=== PATIENT | female | born 1945 | race Two or more races ===

== ENCOUNTER 2024-11-16 11:00 | Inpatient (IN) | payer OTHER ==
[~2024-11-16] VITALS: Ht 157.5 cm; Wt 54.9 kg
[2024-11-16] MEDS ORDERED: VASOTEC5 MG PO (12:21)
[2024-11-16] MEDS ORDERED: DORZOLAMIDE HCL10 ML OPHT (12:21)
[2024-11-16] MEDS ORDERED: SYSTANE COMPLE1.5 ML OP (12:21)
[2024-11-16] MEDS ORDERED: [UNRECOGNIZED DRUG - SUPPLY] OP (12:23)
[2024-11-16 12:24] VITALS: BP 175/75
[2024-11-27] MEDS ORDERED: LIDOCAINE HCL 1%/EPINEPHRINE 20ML VIAL IJ ONE (09:30)
[2024-11-27] MEDS ORDERED: METRONIDAZOLE/SODIUM CHLORIDE 500 MG/100 ML PIGGYBACK IV ONE (09:30)
[2024-11-27] MEDS ORDERED: BUPIVACAINE HCL 30 ML VIAL IJ ONE (09:30)
[2024-11-27] MEDS ORDERED: levoFLOXacin IN DEXTROSE 5 % 5 MG/ML PIGGYBAG IV ONE (09:30)
[2024-11-27] MEDS ORDERED: MORPHINE SULFATE 4 MG/ML VIAL IV ONE ×2 (10:25→10:55)
[2024-11-27] MEDS ORDERED: MORPHINE SULFATE 4 MG/ML CARTRIDGE IV PRN (11:15)
[2024-11-27] MEDS ORDERED: ONDANSETRON HCL 2 MG/ML VIAL IV PRN (11:15)
[2024-11-27] MEDS ORDERED: DEXTROSE 50 % IN WATER 0.5 G/ML DISP.SYRIN IV PRN (11:15)
[2024-11-27] MEDS ORDERED: OxyCODONE HCL 5 MG TABLET (ROXICODONE) PO PRN (11:15)
[2024-11-27] MEDS ORDERED: RINGERS SOLUTION,LACTATED 1,000 ML IV SCH (11:15)
[2024-11-27 11:39] LABS: HEMOGLOBIN 10.1 g/dL (12.0-15.00); MEAN CELL VOLUME 84.4 fL (80.00-100.00); MEAN CORPUSCULAR HEMOGLOBIN 28.3 pg (27.00-32.0); MEAN CORPUSCULAR HGB CONC 33.6 g/dl (32.0-36.0); PLATELET COUNT 158 K/uL (150-450); RED BLOOD COUNT 3.55 M/uL (4.00-6.00); RED CELL DISTRIBUTION WIDTH 13.4 % (11.5-14.5)
[2024-11-27] MEDS ORDERED: SIMETHICONE 125 MG CAPSULE PO SCH (13:00)
[2024-11-27] MEDS ORDERED: HYOSCYAMINE SULFATE 0.125 MG TAB.SUBL SL SCH (13:00)
[2024-11-27] MEDS ORDERED: ACETAMINOPHEN 500 MG GEL..CAP PO SCH (14:00)
[2024-11-27] MEDS ORDERED: ENALAPRILAT DIHYDRATE 1.25 MG/ML VIAL IV PRN (15:45)
[2024-11-27] MEDS ORDERED: CELECOXIB 200 MG CAPSULE PO ONE (15:52)
[2024-11-27] MEDS ORDERED: METOCLOPRAMIDE HCL 5 MG/ML VIAL ONE (15:52)
[2024-11-27] MEDS ORDERED: HYOSCYAMINE SULFATE 0.125 MG TAB.SUBL ONE (15:52)
[2024-11-27] MEDS ORDERED: SIMETHICONE 125 MG CAPSULE PO ONE (15:52)
[2024-11-27] MEDS ORDERED: GABAPENTIN 300 MG CAPSULE PO ONE (15:52)
[2024-11-27 16:25] VITALS: BP 149/71; O2SAT 98
[2024-11-27] MEDS ORDERED: GABAPENTIN 300 MG CAPSULE PO SCH (17:00)
[2024-11-27] MEDS ORDERED: POLYETHYLENE GLYCOL 3350 17 GM BLIST.PACK PO SCH (17:00)
[2024-11-27] MEDS ORDERED: METOCLOPRAMIDE HCL 5 MG/ML VIAL IV SCH (17:00)
[2024-11-27] MEDS ORDERED: CELECOXIB 200 MG CAPSULE PO SCH (17:00)
[2024-11-27] MEDS ORDERED: FAMOTIDINE/PF 20 MG/2 ML VIAL IV PUSH SCH (21:00)
[2024-11-28 03:24] VITALS: BP 132/53
[2024-11-28 07:14] LABS: HEMATOCRIT 34.8 % (36.0-45.00); HEMOGLOBIN 11.6 g/dL (12.0-15.00); MEAN CORPUSCULAR HEMOGLOBIN 27.9 pg (27.00-32.0); MEAN CORPUSCULAR HGB CONC 33.2 g/dl (32.0-36.0); PLATELET COUNT 160 K/uL (150-450); RED BLOOD COUNT 4.14 M/uL (4.00-6.00); RED CELL DISTRIBUTION WIDTH 13.5 % (11.5-14.5)
[2024-11-28 08:03] LABS: ALBUMIN 2.7 gm/dL (3.4-5.0); CALCIUM 8.8 mg/dL (8.5-10.1); CREATININE SERUM 0.9 mg/dL (0.55-1.02); GFR 60.71; MAGNESIUM 1.6 mg/dL (1.8-2.4); PHOSPHOROUS 3.9 mg/dL (2.5-4.9); POTASSIUM 4.29 mEq/L (3.5-5.1)
[2024-11-28 08:57] VITALS: BP 127/70
[2024-11-28] MEDS ORDERED: LACTOBACILLUS ACIDOPHILUS 1 CAP CAP PO SCH (09:00)
[2024-11-28] MEDS ORDERED: ENALAPRIL MALEATE 5 MG TABLET PO SCH (09:00)
[2024-11-28] MEDS ORDERED: LACTULOSE 20 G/30 ML BLIST.PACK PO SCH (09:00)
[2024-11-28 16:00] VITALS: BP 171/74; O2SAT 96
[2024-11-28] MEDS ORDERED: ENOXAPARIN SODIUM 40 MG/0.4 ML SYRINGE SUBCUTANEO SCH (17:00)
[2024-11-29] VITALS: BP 101/67; O2SAT 93
[2024-11-29 08:15] VITALS: BP 154/72; O2SAT 94
[2024-11-29] MEDS ORDERED: ENOXAPARIN SODIUM 40 MG/0.4 ML SYRINGE SUBCUTANEO SCH (09:00)
[2024-11-29 15:50] VITALS: BP 159/71; O2SAT 97
[2024-11-30 00:51] VITALS: BP 134/72; O2SAT 99
[2024-11-30 08:00] VITALS: BP 155/90; O2SAT 95
== END 2024-11-30 09:50 | disposition home or self-care (01) | DRG 331 ==
LOC: SURH 11-27 05:24 → O/R 11-27 05:24 → SURH 11-27 11:00
PROVIDERS: ADMIT Colon & Rectal Surgery; ATTEND Colon & Rectal Surgery
PROC: 0DBP4ZZ Excision of Rectum, Percutaneous Endoscopic Approach (ICD-10-PCS; 2024-11-27)
PROC: 07BC4ZX Excision of Pelvis Lymphatic, Percutaneous Endoscopic Approach, Diagnostic (ICD-10-PCS; 2024-11-27)
PROC: 0DTN4ZZ Resection of Sigmoid Colon, Percutaneous Endoscopic Approach (ICD-10-PCS; principal; 2024-11-27 14:30)
DX: C19 Malignant neoplasm of rectosigmoid junction (principal); D12.7 Benign neoplasm of rectosigmoid junction

== ENCOUNTER 2025-03-13 05:21 | Inpatient (IN) | payer OTHER ==
[~2025-03-13] VITALS: Ht 149.9 cm; Wt 54.4 kg
[~2025-03-13 05:21] MED LIST: DORZOLAMIDE HCL10 ML OPHT; SYSTANE COMPLE1.5 ML OP; VASOTEC5 MG PO; [UNRECOGNIZED DRUG - SUPPLY] OP
[2025-03-13] MEDS ORDERED: CIPROFLOXACIN IN 5 % DEXTROSE 400 MG/200 ML PIGGYBAG IV SCH (06:00)
[2025-03-13] MEDS ORDERED: HEPARIN SODIUM,PORCINE 5,000 UNITS/ML VIAL ONE (06:55)
[2025-03-13] MEDS ORDERED: BUPIVACAINE HCL/Mpf 0.5% 10ML VIAL ONE ×2 (06:56→15:02)
[2025-03-13] MEDS ORDERED: LIDOCAINE HCL 1%/EPINEPHRINE 20ML VIAL IJ ONE ×3 (06:56→15:02)
[2025-03-13] MEDS ORDERED: CIPROFLOXACIN IN 5 % DEXTROSE 400 MG/200 ML PIGGYBAG IV ONE (06:58)
[2025-03-13] MEDS ORDERED: BUPIVACAINE HCL/MPF 0.5% 30ML VIAL ONE (08:04)
[2025-03-13] MEDS ORDERED: MORPHINE SULFATE 2 MG/ML CARTRIDGE IV ONE (08:50)
[2025-03-13] MEDS ORDERED: ENALAPRILAT DIHYDRATE 1.25 MG/ML VIAL IV ONE ×2 (10:38→10:40)
[2025-03-13] MEDS ORDERED: hydrALAZINE HCL 20 MG VIAL ONE (14:18)
[2025-03-13] MEDS ORDERED: ONDANSETRON HCL 2 MG/ML VIAL IV PRN (14:30)
[2025-03-13] MEDS ORDERED: MORPHINE SULFATE 4 MG/ML CARTRIDGE IV PRN (14:30)
[2025-03-13] MEDS ORDERED: 0.9 % SODIUM CHLORIDE 1,000 ML IV SCH (14:30)
[2025-03-13 15:29] LABS: BASO % 0.5 % (0.1-1.2); EOS # 0.13 (0.04-0.54); EOS % 1.8 % (0.7-7.0); HEMATOCRIT 35.7 % (34.1-44.9); HEMOGLOBIN 11.3 g/dL (11.2-15.7); LYMPH % 44.9 % (19.3-53.1); MEAN CORPUSCULAR HEMOGLOBIN 26.4 pg (25.6-32.2); MONO % 8.2 % (4.7-12.5); NEUT # 3.27 (1.56-6.13); NEUT % 44.5 % (34.0-71.1); PLATELET COUNT 247 K/uL (163-369); RED BLOOD COUNT 4.28 M/uL (3.93-5.22); RED CELL DISTRIBUTION WIDTH 13.9 % (11.6-14.4)
[2025-03-13] MEDS ORDERED: HEMOSTATIC MATRIX 1 KIT KIT TOP ONE (15:37)
[2025-03-13] MEDS ORDERED: HEMOSTATIC MATRIX WITH THROMBIN KIT TOP ONE (15:37)
[2025-03-13] MEDS ORDERED: HYOSCYAMINE SULFATE 0.125 MG TAB.SUBL SL SCH (17:00)
[2025-03-13 20:15] VITALS: BP 164/89; O2SAT 96
[2025-03-13] MEDS ORDERED: FAMOTIDINE/PF 20 MG/2 ML VIAL IV PUSH SCH (21:00)
[2025-03-13] MEDS ORDERED: ENALAPRILAT DIHYDRATE 2.5 MG/2 ML VIAL IV PRN (22:00)
[2025-03-14 01:06] VITALS: BP 142/81; O2SAT 100
[2025-03-14 07:59] LABS: BASO % 0.3 % (0.1-1.2); EOS # 0.01 (0.04-0.54); EOS % 0.1 % (0.7-7.0); HEMATOCRIT 33.4 % (34.1-44.9); HEMOGLOBIN 10.5 g/dL (11.2-15.7); LYMPH # 0.81 (1.18-3.74); LYMPH % 8.3 % (19.3-53.1); MEAN CORPUSCULAR HEMOGLOBIN 26.9 pg (25.6-32.2); MONO # 0.83 (0.24-0.82); MONO % 8.5 % (4.7-12.5); NEUT # 8.03 (1.56-6.13); NEUT % 82.5 % (34.0-71.1); PLATELET COUNT 211 K/uL (163-369); RED CELL DISTRIBUTION WIDTH 14.1 % (11.6-14.4)
[2025-03-14 08:35] LABS: CREATININE SERUM 0.63 mg/dL (0.55-1.02); GFR 91.39; PHOSPHOROUS 3.1 mg/dL (2.5-4.9); POTASSIUM 3.93 mEq/L (3.5-5.1)
[2025-03-14 09:10] VITALS: BP 163/83; O2SAT 95
[2025-03-14 16:00] VITALS: BP 163/81; O2SAT 96
[2025-03-14] MEDS ORDERED: LACTOBACILLUS ACIDOPHILUS 1 CAP CAP PO SCH (21:00)
[2025-03-15 01:08] VITALS: BP 145/75; O2SAT 96
[2025-03-15 08:00] VITALS: BP 139/79; O2SAT 97
[2025-03-15] MEDS ORDERED: POLYETHYLENE GLYCOL 3350 17 GM BLIST.PACK PO SCH (09:00)
[2025-03-15 16:53] VITALS: BP 166/82; O2SAT 99
[2025-03-16 02:04] VITALS: BP 132/76; O2SAT 100
[2025-03-16 08:00] VITALS: BP 160/81; O2SAT 99
[2025-03-16 11:48] LABS: BASO % 0.1 % (0.1-1.2); EOS # 0.07 (0.04-0.54); EOS % 0.7 % (0.7-7.0); HEMATOCRIT 34.1 % (34.1-44.9); HEMOGLOBIN 10.9 g/dL (11.2-15.7); LYMPH # 1.04 (1.18-3.74); LYMPH % 10.8 % (19.3-53.1); MEAN CORPUSCULAR HEMOGLOBIN 26.8 pg (25.6-32.2); MONO # 0.77 (0.24-0.82); NEUT # 7.67 (1.56-6.13); NEUT % 80.1 % (34.0-71.1); PLATELET COUNT 200 K/uL (163-369); RED BLOOD COUNT 4.07 M/uL (3.93-5.22); RED CELL DISTRIBUTION WIDTH 13.7 % (11.6-14.4)
[2025-03-16] MEDS ORDERED: ENALAPRIL MALEATE 5 MG TABLET PO SCH (13:23)
[2025-03-16 17:17] VITALS: BP 166/78; O2SAT 100
[2025-03-17 01:55] VITALS: BP 129/78; O2SAT 100
[2025-03-17 08:00] VITALS: BP 161/82; O2SAT 100
[2025-03-17] MEDS ORDERED: FAMOtidine 20 MG TABLET PO SCH (09:00)
[2025-03-17] MEDS ORDERED: ACETAMINOPHEN 500 MG GEL..CAP PO PRN (10:45)
[2025-03-17 16:00] VITALS: BP 138/78; O2SAT 100
[2025-03-18 01:37] VITALS: BP 132/83; O2SAT 98
[2025-03-18 08:00] VITALS: BP 135/82; O2SAT 100
[2025-03-19 00:07] VITALS: BP 159/73; O2SAT 99
[2025-03-19 08:00] VITALS: BP 159/80; O2SAT 93
[2025-03-19] MEDS ORDERED: MINERAL OIL 30 ML BLIST.PACK PO STA (09:04)
[2025-03-19] MEDS ORDERED: MAGNESIUM HYDROXIDE 400 MG/5 ML ML PO STA (09:04)
[2025-03-19] MEDS ORDERED: LACTULOSE 20 G/30 ML BLIST.PACK PO STA (09:05)
[2025-03-19] MEDS ORDERED: POLYETHYLENE GLYCOL 3350 17 GM BLIST.PACK PO NR (10:00)
[2025-03-19 16:00] VITALS: BP 197/83; O2SAT 98
[2025-03-19] MEDS ORDERED: ENALAPRILAT DIHYDRATE 2.5 MG/2 ML VIAL IV NR (16:14)
[2025-03-19] MEDS ORDERED: MIDAZOLAM HCL 2 MG/2 ML VIAL IV PUSH ONE (19:45)
[2025-03-19] MEDS ORDERED: fentaNYL CITRATE 50 MCG/ML AMPUL IV PUSH ONE (19:45)
[2025-03-19 22:06] LABS: PLEURAL FLUID COLOR RED-BLOODY
[2025-03-19 22:07] LABS: PLEURAL FLUID APPEARANCE TURBID; PLEURAL FLUID RBC 0.1 10E6/uL; PLEURAL FLUID WBC 8.9 10E3/uL
[2025-03-19 22:09] LABS: MONONUCLEAR 40.2 %; POLYMORPHONUCLEAR 59.8 %
[2025-03-19 22:26] LABS: TP PLEURAL FLUID 3.3 g/dl
[2025-03-20 01:03] VITALS: BP 141/81; O2SAT 100
[2025-03-20 08:50] VITALS: BP 146/75; O2SAT 99
[2025-03-20] MEDS ORDERED: POLYETHYLENE GLYCOL 3350 17 GM BLIST.PACK PO SCH (09:00)
[2025-03-20 16:00] VITALS: BP 159/63; O2SAT 100
[2025-03-21 01:24] VITALS: BP 140/82; O2SAT 100
[2025-03-21 08:00] VITALS: BP 159/79; O2SAT 100
[2025-03-21 16:00] VITALS: BP 177/76; O2SAT 99
[2025-03-22] VITALS: BP 174/81; O2SAT 100
[2025-03-22 08:00] VITALS: BP 160/80; O2SAT 100
[2025-03-22 16:24] VITALS: BP 139/73; O2SAT 95
== END 2025-03-22 18:58 | disposition home or self-care (01) | DRG 357 ==
LOC: CIR.AMB 05:21 → SURH 17:54 → CIR.AMB 22:45 → SURH 03-22 18:58
PROVIDERS: Radiology Vascular & Interventional Radiology; Surgery; ADMIT Colon & Rectal Surgery; ATTEND Colon & Rectal Surgery
PROC: 05H633Z Insertion of Infusion Device into Left Subclavian Vein, Percutaneous Approach (ICD-10-PCS; 2025-03-13)
PROC: 0W3F0ZZ Control Bleeding in Abdominal Wall, Open Approach (ICD-10-PCS; principal; 2025-03-13 15:00)
PROC: BW24YZZ Computerized Tomography (CT Scan) of Chest and Abdomen using Other Contrast (ICD-10-PCS; 2025-03-17)
PROC: 0W9B30Z Drainage of Left Pleural Cavity with Drainage Device, Percutaneous Approach (ICD-10-PCS; 2025-03-19)
DX: C19 Malignant neoplasm of rectosigmoid junction (principal); J94.2 Hemothorax; L76.22 Postprocedural hemorrhage of skin and subcutaneous tissue following other procedure; D12.7 Benign neoplasm of rectosigmoid junction